=== PATIENT | male | born 2005 | race African-American/Black ===

== ENCOUNTER 2024-09-07 19:50 | Emergency (ER) | payer OTHER ==
--- NOTE | 2024-09-07 20:58 | EDPHYS ---
Physician Documentation [facility] Name: Christian Goldberg Age: 18 yrs Sex: Male : 2005 Arrival Date: 09/07/2024 Time: 19:50 Bed 12 Private MD: ED Physician Irineo Mcguire HPI: 09/07 21:25 This 18 yrs old Black Male presents to ER via Ambulatory with complaints of Sore Throat.dr5 21:25 The patient presents with sore throat. Patient is a 18-year-old male with no past dr5 medical history coming in with multiple dental caries, sore throat, dental infection beginning in the back and needs wisdom tooth removed.. Historical: - Allergies: 20:02 PENICILLINS; jj7 - PMHx: 20:02 Heart murmur; jj7 - PSHx: 20:02 None; jj7 - Immunization history:: Adult Immunizations up to date. - Infectious Disease History:: Denies. - Social history:: Smoking status: Patient denies any tobacco usage or history of. Patient/guardian denies using alcohol, street drugs, IV drugs. ROS: 21:25 Constitutional: as per hpi dr5 Exam: 21:25 Constitutional: This is a well developed, well nourished patient who is awake, alert, dr5 and in no acute distress. Head/Face: Normocephalic, atraumatic. Neck: Trachea midline, no thyromegaly or masses palpated, and no cervical lymphadenopathy. Supple, full range of motion without nuchal rigidity, or vertebral point tenderness. No Meningismus. Chest/axilla: Normal chest wall appearance and motion. Nontender with no deformity. No lesions are appreciated. Cardiovascular: Regular rate and rhythm with a normal S1 and S2. Normal PMI, no JVD. No pulse deficits. Respiratory: Lungs have equal breath sounds bilaterally, clear to auscultation. No rales, rhonchi or wheezes noted. No increased work of breathing, no retractions or nasal flaring. Back: No spinal tenderness. No costovertebral tenderness. Full range of motion. Skin: Warm, dry with normal turgor. Normal color with no rashes, no lesions, and no evidence of cellulitis. MS/ Extremity: Pulses equal, no cyanosis. Neurovascular intact. Full, normal range of motion. Neuro: Awake and alert, GCS 15, oriented to person, place, time, and situation. Cranial nerves II-XII grossly intact. Motor strength 5/5 in all extremities. Sensory grossly intact. Cerebellar exam normal. Normal gait. 21:25 ENT: External ear(s): are unremarkable, Ear canal(s): are normal, Mouth: Lips: normal, Oral mucosa: normal, Gums: normal with healthy appearance, Tongue: is normal, abscess, that is minimal, of the lower left third molar and lower right third molar, Posterior pharynx: is normal, Dental exam: abscess, that is mild, specifically in the lower left third molar (#17) and lower right third molar (#32), Vital Signs: 19:59 BP 143 / 75; Pulse 79; Resp 20; Temp 98.5; Pulse Ox 98% ; Weight 65.77 kg; Height 5 ft. jj7 10 in. ; Pain 6/10; 21:05 BP 132 / 70; Pulse 70; Resp 18; Pulse Ox 99% ; jj7 19:59 Body Mass Index 20.81 (65.77 kg, 177.8 cm) jj7 19:59 Pain Scale: Adult jj7 MDM: 19:56 Medical Screening Exam initiated dr5 21:25 Differential diagnosis: viral syndrome Dental Abscess, Dental Caries. Data reviewed: dr5 vital signs, nurses notes. Care significantly affected by the following Social Determinants of Health: Poor access to healthcare and/or lack of insurance, Poor access to transportation, Problems related to employment. Counseling: I had a detailed discussion with the patient and/or guardian regarding the historical points, exam findings, and any diagnostic results supporting the discharge/admit diagnosis, the presence of at least one elevated blood pressure reading (>120/80) during this emergency department visit, the need for outpatient follow up, for definitive care, a dentist, a family practitioner. Administered Medications: No medications were administered Disposition Summary: 09/07/24 20:58 Discharge Ordered Notes: Location: Home dr5 Condition: Stable dr5 Diagnosis - Dental caries, unspecified dr5 Followup: dr5 - With: Emergency Department - When: As needed - Reason: Trouble breathing Followup: dr5 - With: Private Physician - When: 1 - 2 days - Reason: Recheck today's complaints, Continuance of care, Re-evaluation by your physician Discharge Instructions: - Discharge Summary Sheet dr5 - Dental Abscess dr5 Forms: - Work release form dr5 - Medication Reconciliation Form dr5 - Antibiotic Education dr5 - Patient Portal Instructions dr5 - Leadership Thank You Letter dr5 Prescriptions: - Clindamycin HCl 300 mg Oral Capsule - take 1 capsule ORAL route every 6 hours for 10 days; 40 capsule; Refills: 0, dr5 Product Selection Permitted - Ibuprofen 800 mg Oral Tablet - take 1 tablet ORAL route every 12 hours As needed take with food; 20 tablet; dr5 Refills: 0, Product Selection Permitted Addendum: 09/08/2024 21:49 I was immediately available for consultation during this patient's visit. I did not e c2 personally see the patient or discuss the patient with the MIGUEL. . Signatures: Horacio Olivera RN RN jj7 Irineo Mcguire MD MD ec2 Silvino Denise, WAFER MACHINE OPERATOR-C WAFER MACHINE OPERATOR-Cdr5 Corrections: (The following items were deleted from the chart) 09/07 20:03 20:02 Allergies: No Known Allergies; jj7 jj7
--- NOTE | 2024-09-07 20:58 | ER ---
Nurse's Notes [facility] Name: Christian Goldberg Age: 18 yrs Sex: Male : 2005 Arrival Date: 09/07/2024 Time: 19:50 Bed 12 Private MD: Diagnosis: Dental caries, unspecified Presentation: 09/07 19:59 Chief complaint: Patient states: SORE THROAT SINCE WEDNESDAY WITH ON AND OFF FEVERS. ALSO jj7 THINKS IT'S HIS TEETH CAUSING THE PAIN. Coronavirus screen: At this time, the client does not indicate any symptoms associated with coronavirus-19. Ebola Screen: No symptoms or risks identified at this time. Initial Sepsis Screen: Does the patient meet any 2 criteria? No. Patient's initial sepsis screen is negative. Does the patient have a suspected source of infection? No. Patient's initial sepsis screen is negative. Risk Assessment: Do you want to hurt yourself or someone else? Patient reports no desire to harm self or others. Onset of symptoms was September 04, 2024. 19:59 Method Of Arrival: Ambulatory [facility] 19:59 Acuity: LILI 4 jj7 Triage Assessment: 20:02 General: Appears in no apparent distress. comfortable, Behavior is calm, cooperative, jj7 appropriate for age. Pain: Complains of pain in uvula, left aspect of posterior pharynx, right aspect of posterior pharynx, lower left third molar, lower left second molar, lower right second molar and lower right third molar Pain currently is 6 out of 10 on a pain scale. EENT: Reports PAIN WITH SWALLOWING. Historical: - Allergies: 20:02 PENICILLINS; jj7 - PMHx: 20:02 Heart murmur; jj7 - PSHx: 20:02 None; jj7 - Immunization history:: Adult Immunizations up to date. - Infectious Disease History:: Denies. - Social history:: Smoking status: Patient denies any tobacco usage or history of. Patient/guardian denies using alcohol, street drugs, IV drugs. Screenin:05 [facility] ED Fall Risk Assessment (Adult) History of falling in the last 3 months, jj7 including since admission No falls in past 3 months (0 pts) Confusion or Disorientation No (0 pts) Intoxicated or Sedated No (0 pts) Impaired Gait No (0 pts) Mobility Assist Device Used No (0 pt) Altered Elimination No (0 pt) Score/Fall Risk Level 0 - 2 = Low Risk Oriented to surroundings, Maintained a safe environment, Educated pt \T\ family on fall prevention, incl call for assistance when getting out of bed, Assessed \T\ reinforced patient's understanding of fall precautions. Abuse screen: Denies threats or abuse. Nutritional screening: No deficits noted. Tuberculosis screening: No symptoms or risk factors identified. Assessment: 19:08 General: Appears in no apparent distress. Behavior is calm, cooperative. Pain: ay Complains of pain in mouth. Neuro: Level of Consciousness is awake, alert, obeys commands, Oriented to person, place, situation. Cardiovascular: Denies chest pain. Respiratory: Airway is patent Respiratory effort is even, unlabored, Respiratory pattern is regular, symmetrical. GI: No signs and/or symptoms were reported involving the gastrointestinal system. : No signs and/or symptoms were reported regarding the genitourinary system. EENT: Throat is clear. 20:00 Respiratory: Airway is patent Respiratory effort is even, unlabored, Breath sounds are jj7 clear bilaterally. EENT: Throat is clear. 20:02 Reassessment: see triage assessment. jj7 Vital Signs: 19:59 BP 143 / 75; Pulse 79; Resp 20; Temp 98.5; Pulse Ox 98% ; Weight 65.77 kg; Height 5 ft. jj7 10 in. ; Pain 6/10; 21:05 BP 132 / 70; Pulse 70; Resp 18; Pulse Ox 99% ; jj7 19:59 Body Mass Index 20.81 (65.77 kg, 177.8 cm) jj7 19:59 Pain Scale: Adult jj7 ED Course: 19:54 Patient arrived in ED. jj6 19:56 [facility] Den[facility]C [facility] 19:56 Irineo Mcguire MD is Attending Physician. dr5 20:02 Triage completed. jj7 20:02 Arm band placed on right wrist. Patient placed in an exam room, on a stretcher. jj7 20:05 Patient has correct armband on for positive identification. Bed in low position. Call jj7 light in reach. Provided Education on: USE OF CALL CORTES. 20:17 Horacio Olivera RN is Primary Nurse. jj7 21:05 No provider procedures requiring assistance completed. Patient did not have IV access jj7 during this emergency room visit. Administered Medications: No medications were administered Medication: 21:05 VIS not applicable for this client. jj7 Outcome: 20:58 Discharge ordered by . eryn 21:05 Discharged to home ambulatory, jjAshley 21:05 Condition: good 21:05 Discharge instructions given to patient, Instructed on discharge instructions, follow up and referral plans. medication usage, Demonstrated understanding of instructions, follow-up care, medications, Prescriptions given X 2, 21:07 Patient left the ED. jj7 Signatures: Charisma Montez jj6 Horacio Olivera RN RN jj7 Silvino Denise, HOME CARE ATTENDANT-C HOME CARE ATTENDANT-Cdr5 Bambi Hirsch RN MARISELA ay Corrections: (The following items were deleted from the chart) 20:03 20:02 Allergies: No Known Allergies; jj7 jj7 20:05 19:59 Chief complaint: Patient states: SORE THROAT SINCE WEDNESDAY WITH ON AND OFF FEVERS. jj7 jj7
[2024-09-07 21:29] VITALS: TEMP 98.5
[2024-09-07 21:30] VITALS: BP 132/70; O2SAT 99
== END 2024-09-07 21:07 | disposition home or self-care (01) ==
LOC: ER 19:50
DX: K02.9 Dental caries, unspecified (principal); R07.0 Pain in throat
CPT/HCPCS: 99283